=== PATIENT | female | born 1995 | race African-American/Black ===

== ENCOUNTER 2017-04-24 06:49 | Emergency (ER) | payer SELFPAY ==
[~2017-04-24] VITALS: Ht 152.4 cm; Wt 56.7 kg
[2017-04-24 06:52] VITALS: BP 123/78
--- NOTE | 2017-04-24 07:02 | NUR ---
Dr. Moraes evaluating patient.
--- NOTE | 2017-04-24 07:02 | NUR ---
PT TAKEN TO BED 2
--- NOTE | 2017-04-24 07:03 | NUR ---
21/ bib friend C/O neasea,DISMENORRHEA THIS MORNING. FIRST DAY OF PERIOD. TOOK MOTRIN 30 MINS AGO. NO MED HX.SKIN IS PINK/WARM/DRY; AAOX4 WITH EVEN AND STEADY GAIT; LUNGS CLEAR BL; PATIENT STATES PAIN OF 10/10 AT THIS TIME. PATIENT POSITIONED FOR COMFORT; HOB ELEVATED; BEDRAILS UP X2; BED DOWN. ER MD MADE AWARE OF PT STATUS.
--- NOTE | 2017-04-24 07:05 | NUR ---
Misa kebede in [facility] - 04/24/17 at 0706 by [email or web address] Patient being evaluated by dr ndiaye at bedside.
[2017-04-24] MEDS ORDERED: HYDROcodone/APAP 5/325 MG 1 TAB TAB PO ONE (07:10)
--- NOTE | 2017-04-24 07:24 | NUR ---
FRIEND AT BEDSIDE.
--- NOTE | 2017-04-24 07:42 | NUR ---
Patient being reevaluated by dr ndiaye at bedside.
[2017-04-24 07:55] VITALS: BP 119/69
--- NOTE | 2017-04-24 07:55 | NUR ---
Patient discharged with v/s stable. Written and verbal after care instructions given and explained. Patient alert, oriented and verbalized understanding of instructions. Ambulatory with steady gait. All questions addressed prior to discharge. ID band removed. Patient advised to follow up with PMD. Rx of MOTRIN & NITROFURANTOIN given. Patient educated on indication of medication including possible reaction and side effects. Opportunity to ask questions provided and answered.
== END 2017-04-24 07:55 | disposition home or self-care (01) ==
LOC: MED 06:49
DX: N39.0 Urinary tract infection, site not specified (principal); Z88.8 Allergy status to other drugs, medicaments and biological substances
CPT/HCPCS: 81002; 81025; 99283